=== PATIENT | female | born 1965 | race African-American/Black ===

== ENCOUNTER → 2019-05-15 | Outpatient (CLI) | payer BC ==
--- NOTE | 2019-05-15 13:02 | RADIOLOGY REPORT (SQ) ---
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 TECHNIQUE: Sagittal and Axial imaging includes T1, T2, STIR and gradient echo sequences. Coronal T2/ HASTE imaging. LIMITATIONS: None. FINDINGS: VISUALIZED UPPER ABDOMEN: Limited evaluation. No acute or suspicious findings suggested. SEGMENTATION: No transitional anatomy. The lowest well-developed disc space is labeled L5-S1. ALIGNMENT: Anatomic. VERTEBRAE: Intact. BONE MARROW: Normal. No marrow replacement or reactive changes. DISC SIGNAL: Normal. No significant abnormal signal or loss of height. POSTERIOR ELEMENTS: Generally intact. No pars defect evident. HARDWARE: None in the spine. CORD AND CONUS: Normal in size and signal intensity. Conus at the appropriate level. SOFT TISSUES: No aortic aneurysm seen. No bulky retroperitoneal adenopathy or mass. No paraspinal mas s or fluid. L1-L2: No significant spinal stenosis or exit foraminal stenosis. L2-L3: No disc bulge. [id number] facet arthropathy. No significant spinal stenosis or exit fo raminal stenosis. L3-L4: No disc bulge. Mild to moderate facet arthropathy. No significant spinal stenosis or exit fo raminal stenosis. L4-L5: No disc bulge. Moderate facet arthropathy. No significant spinal stenosis or exit foraminal stenosis. L5-S1: No disc bulge. Mild facet arthropathy. No significant spinal stenosis or exit foraminal sten osis. LOWER THORACIC: Incompletely imaged. No stenosis seen. SACRUM: Visualized upper sacrum intact. OTHER: No other significant findings. IMPRESSION: CHRONIC CHANGES WITH FACET ARTHROPATHY. NO SIGNIFICANT DISC BULGE. NO STENOSIS OR IMPI NGEMENT. NO ACUTE FINDINGS. TECHNICAL DOCUMENTATION: JOB ID: [id number] [employer]- All Rights Reserved Reading location - IP/workstation name: [email or web address]
== END ==
LOC: RAD 11:50
PROVIDERS: ATTEND Nurse Practitioner Family
DX: R32 Unspecified urinary incontinence (principal); M54.9 Dorsalgia, unspecified; G83.4 Cauda equina syndrome; M54.30 Sciatica, unspecified side
CPT/HCPCS: 72148